=== PATIENT | male | born 1975 | race Caucasian/White ===

== ENCOUNTER 2016-10-22 16:01 | Emergency (ER) | payer MEDICARE ==
[~2016-10-22] VITALS: Ht 172.7 cm; Wt 110.0 kg
[2016-10-22 16:03] VITALS: BP 184/105; PULSE 81; RESP 17; TEMP 98.4; O2SAT 99
[2016-10-22 16:21] VITALS: BP 168/103; PULSE 79; RESP 18; O2SAT 96
[2016-10-22] MEDS ORDERED: SODIUM CHLORIDE 0.9% FLUSH 10 ML FLUSH IVF PRN (16:30)
[2016-10-22 17:02] LABS: BASOPHIL # 0.1 TH/MM3 (0-0.2); BASOPHIL % 0.8 % (0.0-2.0); EOSINOPHIL # 0.4 TH/MM3 (0-0.4); EOSINOPHIL % 4.5 % (0.0-4.0); HEMATOCRIT 46.7 % (39.0-51.0); HEMO FLAGS DIFF FINAL; LYMPH % 20.2 % (9.0-44.0); LYMPHOCYTE # 1.7 TH/MM3 (1.0-4.8); MEAN CORPUSCULAR HEMOGLOBIN 32.1 PG (27.0-34.0); MEAN CORPUSCULAR HGB CONC 35.3 % (32.0-36.0); MONO % 13.9 % (0.0-8.0); NEUT % 60.6 % (16.0-70.0); PLATELET COUNT 242 TH/MM3 (150-450); RED BLOOD COUNT 5.13 MIL/MM3 (4.50-5.90); RED CELL DISTRIBUTION WIDTH 12.6 % (11.6-17.2); WHITE BLOOD COUNT 8.3 TH/MM3 (4.0-11.0)
[2016-10-22 17:19] LABS: ALT (GPT) 73 U/L (12-78); ANION GAP 6 MEQ/L (5-15); AST (GOT) 66 U/L (15-37); BICARBONATE 28.7 MEQ/L (21.0-32.0); CHLORIDE 103 MEQ/L (98-107); GLOMERULAR FILTRATION RATE 76 ML/MIN (>89); MAGNESIUM 2.2 MG/DL (1.5-2.5); SODIUM (NA) 138 MEQ/L (136-145)
[2016-10-22 17:23] LABS: ALKALINE PHOSPHATASE 63 U/L (45-117); BLOOD UREA NITROGEN 8 MG/DL (7-18); CREATINE KINASE 150 U/L (39-308); TOTAL BILIRUBIN ADULT 0.3 MG/DL (0.2-1.0)
--- NOTE | 2016-10-22 17:29 | PD ---
HPI Chief Complaint: Chest Pain Time Seen by Provider: 16:27 Travel History International Travel<30 days: No Contact w/Intl Traveler<30days: No Traveled to known affect area: No History of Present Illness HPI 41-year-old male with history of anxiety and schizophrenia, presents to the ER today for 2 weeks history of intermittent shortness of breath, chest discomfort , worsening with exertion and laying down. He also experiences coughing intermittently. He denies any fevers, vomiting, abdominal pains, or any other symptoms. He currently rates his chest discomfort a 3 out of 10. He was seen by urgent care and sent in for further evaluation for possible fluid in the lung. Chest x-ray had been done at the facility. Modifying Factors: None Associated Signs & Symptoms: Chest discomfort, dyspnea on exertion, shortness of breath, possible fluid in the lung Risk Factors: None PFSH Past Medical History Blood Disorders: Yes Anxiety: Yes Cardiovascular Problems: Yes Schizophrenia: Yes Social History Alcohol Use: No Tobacco Use: Yes Allergies-Medications (Allergen,Severity, Reaction): Coded Allergies: No Known Allergies (Unverified , 10/22/16) Review of Systems Except as stated in HPI: all other systems reviewed are Neg Physical Exam Narrative GENERAL: Well-developed mildly anxious appearing middle age white male patient not in acute distress. SKIN: Focused skin assessment warm/dry. HEAD: Atraumatic. Normocephalic. EYES: Pupils equal and round. No scleral icterus. No injection or drainage. ENT: No nasal bleeding or discharge. Mucous membranes pink and moist. NECK: Trachea midline. No JVD. CARDIOVASCULAR: Regular rate and rhythm. No murmur appreciated. Pulses are present and equal bilaterally. RESPIRATORY: No accessory muscle use. Clear to auscultation. Breath sounds equal bilaterally. GASTROINTESTINAL: Abdomen soft, non-tender, nondistended. Hepatic and splenic margins not palpable. MUSCULOSKELETAL: No obvious deformities. No clubbing. No cyanosis. No edema. NEUROLOGICAL: Awake and alert. No obvious cranial nerve deficits. Motor grossly within normal limits. Normal speech. PSYCHIATRIC: Appropriate mood and affect; insight and judgment normal. Data Data Last Documented VS Vital Signs Date Time Temp Pulse Resp B/P Pulse Ox O2 Delivery O2 Flow Rate FiO2 10/22/16 16:29 96 Room Air 10/22/16 16:21 79 18 168/103 10/22/16 16:03 98.4 Orders Complete Blood Count With Diff (10/22/16 16:20) Comprehensive Metabolic Panel (10/22/16 16:20) B-Type Natriuretic Peptide (10/22/16 16:20) Act Partial Throm Time (Ptt) (10/22/16 16:20) Prothrombin Time / Inr (Pt) (10/22/16 16:20) Magnesium (Mg) (10/22/16 16:20) Ckmb (Isoenzyme) Profile (10/22/16 16:20) Troponin I (10/22/16 16:20) Iv Access Insert/Monitor (10/22/16 16:20) Electrocardiogram (10/22/16 16:20) Ecg Monitoring (10/22/16 16:20) Oximetry (10/22/16 16:20) Oxygen Administration (10/22/16 16:20) Chest, Single Ap (10/22/16 16:20) Sodium Chloride 0.9% Flush (Ns Flush) (10/22/16 16:30) D-Dimer (10/22/16 16:15) CKMB (10/22/16 16:15) CKMB% (10/22/16 16:15) Labs Laboratory Tests Test 10/22/16 16:15 White Blood Count 8.3 TH/MM3 Red Blood Count 5.13 MIL/MM3 Hemoglobin 16.5 GM/DL Hematocrit 46.7 % Mean Corpuscular Volume 91.0 FL Mean Corpuscular Hemoglobin 32.1 PG Mean Corpuscular Hemoglobin 35.3 % Concent Red Cell Distribution Width 12.6 % Platelet Count 242 TH/MM3 Mean Platelet Volume 8.1 FL Neutrophils (%) (Auto) 60.6 % Lymphocytes (%) (Auto) 20.2 % Monocytes (%) (Auto) 13.9 % Eosinophils (%) (Auto) 4.5 % Basophils (%) (Auto) 0.8 % Neutrophils # (Auto) 5.0 TH/MM3 Lymphocytes # (Auto) 1.7 TH/MM3 Monocytes # (Auto) 1.2 TH/MM3 Eosinophils # (Auto) 0.4 TH/MM3 Basophils # (Auto) 0.1 TH/MM3 CBC Comment DIFF FINAL Differential Comment Prothrombin Time 11.0 SEC Prothromb Time International 1.0 RATIO Ratio Activated Partial 26.0 SEC Thromboplast Time D-Dimer Quantitative (PE/DVT) 0.20 MG/L FEU Sodium Level 138 MEQ/L Potassium Level 4.0 MEQ/L Chloride Level 103 MEQ/L Carbon Dioxide Level 28.7 MEQ/L Anion Gap 6 MEQ/L Blood Urea Nitrogen 8 MG/DL Creatinine 1.08 MG/DL Estimat Glomerular Filtration 76 ML/MIN Rate Random Glucose 84 MG/DL Calcium Level 8.9 MG/DL Magnesium Level 2.2 MG/DL Total Bilirubin 0.3 MG/DL Aspartate Amino Transf 66 U/L (AST/SGOT) Alanine Aminotransferase 73 U/L (ALT/SGPT) Alkaline Phosphatase 63 U/L Total Creatine Kinase 150 U/L Creatine Kinase MB 0.8 NG/ML Troponin I LESS THAN 0.02 NG/ML B-Type Natriuretic Peptide 6 PG/ML Total Protein 7.5 GM/DL Albumin 3.5 GM/DL [facility] Medical Decision Making Medical Screen Exam Complete: Yes Emergency Medical Condition: Yes Medical Record Reviewed: Yes Interpretation(s) EKG shows NSR, no ST elevation or depression, and no arrhythmias. No significant T-wave inversions. Laboratory Tests Test 10/22/16 16:15 Monocytes (%) (Auto) 13.9 % (0.0-8.0) Eosinophils (%) (Auto) 4.5 % (0.0-4.0) Monocytes # (Auto) 1.2 TH/MM3 (0-0.9) Estimat Glomerular Filtration 76 ML/MIN (>89) Rate Aspartate Amino Transf 66 U/L (15-37) (AST/SGOT) Troponin I LESS THAN 0.02 NG/ML (0.02-0.05) Differential Diagnosis Shortness of breath and chest discomfortanxiety attack versus COPD versus CHF versus pneumonia versus PE versus ACS Narrative Course Chest x-ray did not show any signs of fluid in the lungs or any other acute processes. EKG did not show dysrhythmias or ST elevations or depressions. Lab work was otherwise unremarkable. Patient is coughing up green phlegm in the ER. Patient also smokes. I suspect underlying bronchitis as the reason for his current symptoms. However, underlying cardiac issues cannot be ruled out. At this point, I have talked to the patient and his family regarding this chest discomfort and I have recommended that he gets further cardiac follow-up including echo and further testing. I have offered to admit him to chest pain center. However, the patient is resistant to the idea and would prefer to follow-up as an outpatient. My plan would be to treat his bronchitis. Return for any worsening in symptoms as necessary. The plan was discussed with him and the risk was discussed with him of undiagnosed cardiac disease, and he states understanding. I have also discussed smoking cessation with him as this could be the cause of his current bronchitis as well. Diagnosis Primary Impression: Bronchitis Additional Impressions: Chest pain Needs smoking cessation education Med/Other Pt SpecificInfo: Prescription(s) given Scripts Albuterol 6.7 GM Inh (Proventil Hfa 6.7 GM Inh)90 Mcg/Act Aer2 Puff INH Q4-6H PRN (SHORTNESS OF BREATH) #1 INHALER Ref 0 Prov:Emily Hoang MD 10/22/16 Prednisone 50 Mg Tab50 Mg PO DAILY #5 TAB Ref 0 Prov:Emily Hoang MD 10/22/16 Azithromycin (Zithromax Z-Alen)250 Mg [id number] Mg PO DIRECTED #1 DSPK Ref 0 500 MG (2 tabs) day 1, then 1 tab days 2-5. Prov:Emily Hoang MD 10/22/16 Disposition: 01 DISCHARGE HOME Condition: Stable Emily Hoang MD Oct 22, 2016 17:29
[2016-10-22 17:35] LABS: CKMB 0.8 NG/ML (0.5-3.6)
--- NOTE | 2016-10-22 17:46 | RADRPT ---
EXAM DATE/TIME: 10/22/2016 17:34 [facility] COMPARISON: No previous studies available for comparison. INDICATIONS : Chest pressure, shortness of breath MEDICAL HISTORY : None. SURGICAL HISTORY : None. ENCOUNTER: Initial ACUITY: 1 day PAIN SCORE: 0/10 LOCATION: Bilateral chest FINDINGS: A single view of the chest demonstrates the lungs to be symmetrically aerated without evidence of mas s, infiltrate or effusion. The cardiomediastinal contours are unremarkable. Osseous structures are intact. There are overlying electrocardiogram leads. There are surgical anchors in the left glenoid. CONCLUSION: No acute disease. Orlando Patrick MD on October 22, 2016 at 17:44 Board Certified Radiologist. This report was verified electronically.
[2016-10-22] MEDS ORDERED: PRED50 PO (18:13)
[2016-10-22] MEDS ORDERED: ALBU6.7H INH (18:13)
[2016-10-22] MEDS ORDERED: ZITHTAB PO (18:13)
[2016-10-22] MEDS ORDERED: RESP: ALBUTEROL 2.5 MG/IPRATROPIUM 0.5 MG NEB (SCH) INH ONE (18:15)
[2016-10-22] MEDS ORDERED: predniSONE 50 MG TAB PO ONE (18:15)
--- NOTE | 2016-10-27 08:19 | EKG ---
Date Performed: 10/22/2016 Time Performed: 17:58:16 PTAGE: 41 years EKG: Sinus rhythm WITH SINUS ARRHYTHMIA NONSPECIFIC T-WAVE ABNORMALITY BORDERLINE ECG NO PREVIOUS TRACING DOCTOR: Daljit Morataya Interpretating Date/Time 10/27/2016 08:16:51
== END 2016-10-22 19:03 | disposition home or self-care (01) ==
LOC: NEPE 16:01
DX: J40 Bronchitis, not specified as acute or chronic (principal); R07.9 Chest pain, unspecified; Z72.0 Tobacco use; I49.8 Other specified cardiac arrhythmias; R06.02 Shortness of breath
CPT/HCPCS: 71010; 80053; 82550; 82552; 83735; 83880; 84484; 85025; 85379; 85610; 85730; 93005; 94664